=== PATIENT | female | born 2000 | race Caucasian/White ===

== ENCOUNTER 2021-07-14 15:21 | Emergency (ER) | payer OTHER, MEDICAID, SELFPAY ==
[2021-07-14 15:34] VITALS: PULSE 88; RESP 22; TEMP 37.1; O2SAT 98
--- NOTE | 2021-07-14 18:49 | ED.DENTAL ---
HPI - Dental/Oral General Chief complaint: Dental/Oral Stated complaint: LT SIDE TOOTH INJURY/NERVE EXPOSED Time Seen by Provider: 07/14/21 18:48 Source: patient Mode of arrival: Ambulatory History of Present Illness HPI Narrative: 20-year-old woman with social anxiety disorder seen by dentist back in May with complaints of left upper 1st and 2nd molar pain. Was told she needed 1 of them removed because of exposed nerve root. She still waiting to be seen for definitive treatment. At that time she was treated with a brief course of antibiotics and that did seem to help. The last 48 hours she has noticed dramatically increased pain, low-grade fevers and overall worsening sensitivity in the area of the same tooth. She has been using 600 mg of ibuprofen 3 times a day and it is no longer effective. She describes no nausea vomiting, abdominal pain, cough, palpitations. Related Data Previous Rx's Medication Instructions Recorded amoxicillin 500 mg capsule 500 mg PO TID #21 cap 07/14/21 Review of Systems Review of Systems Narrative: Remainder of complete review of systems is otherwise unremarkable except for that included in the HPI. Patient History Medical History (Updated 07/14/21 @ 18:55 by Brenna Pulido MD) Social anxiety disorder Exam Narrative Exam Narrative: General: Alert appropriate in no acute distress HEENT: Multiple dental caries but overall fairly reasonable dental hygiene. No obvious exposed broken teeth and no obvious abscess no facial swelling. Respiratory: Able to speak in full sentences, no obvious respiratory distress Skin: No obvious rashes, warm and dry Neurologic: Grossly intact no obvious asymmetries or abnormalities Psych: appropriate insight and affect, cooperative Initial Vital Signs Initial Vital Signs: Vital Signs Temperature 98.7 F 07/14/21 15:34 Pulse Rate 88 07/14/21 15:34 Respiratory Rate 22 07/14/21 15:34 Pulse Oximetry 98 07/14/21 15:34 Course Orders Ordered: Amoxicillin (Amoxicillin 250 Mg/5 Ml Prepack) 1 bottle MISC SEEINSTR ONE Stop: 07/14/21 18:53 Vital Signs Vital signs: Vital Signs - 8 hr 07/14/21 15:34 Temperature 98.7 F Pulse Rate 88 Respiratory Rate 22 Pulse Oximetry 98 MDM - Dental/Oral MDM Narrative Medical decision making narrative: 20-year-old young woman with increasing pain left upper 1st and 2nd molar. Has upcoming dental procedures but not for a number of weeks. In the past amoxicillin has been helpful. Will give her prescription for this and instruct return if symptoms worse. She is safe for home discharge Discharge Plan Departure Patient Disposition: Home Clinical Impression: Toothache Instructions: DI for Dental Pain Activity Restrictions/Additional Instructions: Thank you for coming in today I am sorry that you are hurting. I have given you a take-home packet of amoxicillin. For the the take home pills you need to take 2 at a time 3 times a day. The prescription amoxicillin is for 500 mg and you will need 1 at a time 3 times a day Try adding a single tablet of Tylenol to every tablet of ibuprofen and see if this is any more effective for you. Please make sure your contacting your dentist tomorrow to see if there is any way they are able to move up your appointment. I wish you the best Prescriptions: New amoxicillin 500 mg capsule 500 mg PO TID Qty: 21 0RF Referrals: Parveen Navarro MD [Primary Care Provider] -
[2021-07-14 19:04] VITALS: BP 144/83; PULSE 86; RESP 16; O2SAT 100
[2021-07-14] MEDS: AMOXICILLIN 250 MG PREPACK 1 BOTTLE MISC (19:08)
[2021-07-14] MEDS: OXYCODONE/APAP 5/325 PREPACK 1 BOTTLE MISC (19:09)
--- NOTE | 2021-07-14 20:21 | PC.NURSE ---
Amoxicillin Rx called into [facility] pharmacy in [place] per pt request.
== END 2021-07-14 19:13 | disposition home or self-care (01) ==
PROVIDERS: Emergency Provider Emergency Medicine; PCP Family Medicine
DX: K08.89 Other specified disorders of teeth and supporting structures (principal)
CPT/HCPCS: 99281

== ENCOUNTER → 2021-12-26 18:28 | Outpatient (CLI) | payer OTHER, MEDICAID, SELFPAY ==
--- NOTE | 2021-12-26 18:30 | DI.RAD.S_ITS ---
PROCEDURE: XR HAND LT MIN 3V INDICATIONS: Left hand/wrist pain TECHNIQUE: 3 views of the hand(s) acquired. COMPARISON: None. FINDINGS: Bones: No fractures or dislocations. Carpal bones are normally aligned. No suspicious bony lesions. Soft tissues: No suspicious soft tissue calcifications. IMPRESSION: No acute osseous abnormalities. If clinical symptoms persist or clinical suspicion for pathology is high, a repeat examination in 7-10 days, or advanced imaging such as CT or MRI is suggested for further evaluation. Dictated by: Maria Esther Pompa M.D. on 12/27/2021 at 17:23 Approved by: Maria Esther Pompa M.D. on 12/27/2021 at 17:23
--- NOTE | 2021-12-26 18:30 | DI.RAD.S_ITS ---
PROCEDURE: XR WRIST LT MIN 3V INDICATIONS: Left hand/wrist pain TECHNIQUE: 4 views of the wrist were acquired. COMPARISON: [facility], , XR HAND LT MIN 3V, 12/26/2021, 18:17. FINDINGS: Bones: No fractures or dislocations. No suspicious bony lesions. There is ulnar negative variance. Scaphoid view: Scaphoid appears intact. Soft tissues: No suspicious soft tissue calcifications. IMPRESSION: 1. No acute osseous abnormalities. 2. Ulnar negative variance. Dictated by: Maria Esther Pompa M.D. on 12/27/2021 at 17:24 Approved by: Maria Esther Pompa M.D. on 12/27/2021 at 17:25
== END ==
PROVIDERS: PCP Family Medicine; Referring Provider Nurse Practitioner Family; Visit Provider Nurse Practitioner Family
DX: M79.642 Pain in left hand (principal); M25.532 Pain in left wrist
CPT/HCPCS: 73110; 73130

== ENCOUNTER → 2023-04-30 14:14 | Outpatient (CLI) | payer OTHER, MEDICAID, SELFPAY ==
[2023-04-30 15:25] LABS: Influenza A - CEPHEID Flu A NEGATIVE (NEGATIVE); Influenza B - CEPHEID Flu B NEGATIVE (NEGATIVE); Respiratory Syncytial Virus Negative (Negative)
[2023-04-30 15:29] LABS: COVID-19 CEPHEID 4-PLEX PCR POSITIVE (Negative)
== END ==
PROVIDERS: PCP Family Medicine; Visit Provider Nurse Practitioner Family
DX: R30.0 Dysuria (principal); R50.9 Fever, unspecified; J02.9 Acute pharyngitis, unspecified
CPT/HCPCS: 0241U; 81002; 87070; 87086; C9803

== ENCOUNTER 2023-05-02 17:02 | Emergency (ER) | payer OTHER, MEDICAID, SELFPAY ==
[2023-05-02 17:15] VITALS: BP 184/112; PULSE 84; RESP 16; TEMP 36.9; O2SAT 98; BMI 56.5
--- NOTE | 2023-05-02 18:49 | ED.URI ---
HPI - URI/Sore Throat <IDRIS Sun - Last Filed: 05/02/23 19:00> General Chief Complaint: Upper Respiratory Symptoms Stated Complaint: covid Time Seen by Provider: 05/02/23 18:35 Source: patient Mode of arrival: Ambulatory History of Present Illness HPI Narrative: 22-year-old female, morbidly obese, presents to the emergency department with cough, congestion, sinus drainage, fatigue and body aches secondary to COVID-19. Patient tested positive for COVID 2 days ago at the walk-in clinic. Patient denies any history of asthma, bronchitis, pneumonia or tobacco usage. Related Data Home Medications Medication Instructions Recorded Confirmed hydroxyzine HCl 25 mg tablet 25 mg PO BID PRN 04/30/23 04/30/23 methylphenidate HCl 18 mg 18 mg PO DAILY 04/30/23 04/30/23 tablet,extended release 24 hr (Concerta) omeprazole 20 mg capsule,delayed 20 mg PO DAILY 04/30/23 04/30/23 release ondansetron 8 mg disintegrating 8 mg PO 3XD 04/30/23 04/30/23 tablet sertraline 50 mg tablet mg PO 04/30/23 04/30/23 tramadol 50 mg tablet 50 mg PO 4XD PRN 04/30/23 04/30/23 Previous Rx's Medication Instructions Recorded ondansetron 4 mg disintegrating 4 mg PO Q8H PRN nausea and 05/02/23 tablet vomiting #10 tabs Allergies Allergy/AdvReac Type Severity Reaction Status Date / Time No Known Drug Allergies Allergy Verified 04/30/23 14:02 Review of Systems <IDRIS Sun - Last Filed: 05/02/23 19:00> Review of Systems Narrative: Narrative: See HPI. GENERAL: Denies chills, fever, sweats. Endorses fatigue and body aches. HEENT: Denies sinus pain, edifficulty swallowing, dizziness. Endorses ear fullness and sore throat. RESPIRATORY: Denies dyspnea, wheezing, sputum. Endorses cough and congestion. CARDIOVASCULAR: Denies chest pain, palpitations, edema. GASTROINTESTINAL: Denies abdominal pain, diarrhea, constipation. Endorses occasional nausea and vomiting. : Denies dysuria, frequency, incontinence, hematuria, urinary retention, flank pain. MSK: Denies weakness, joint pain, or bony pain. SKIN: Denies rash, skin lesions, or pruritis. NEUROLOGIC: Denies weakness, dizziness, headache, numbness, confusion. PSYCHIATRIC: No concerning psychosocial issues. Patient History <IDRIS Sun - Last Filed: 05/02/23 19:00> Medical History Social anxiety disorder Social History Smoking Status: Never smoker Smoking Status: Never smoker Exam <IDRIS Sun - Last Filed: 05/02/23 19:00> Narrative Exam Narrative: Exam Narrative: GENERAL: This is a well-nourished, well-developed patient, in no acute distress. HEAD: Atraumatic. Normocephalic. EYES: Pupils equal round and reactive. Extraocular motions intact. No scleral icterus, injection or drainage. ENT: Nose without bleeding, purulent drainage. Throat without erythema, tonsillar hypertrophy, positive postnasal exudate. Uvula midline. Airway patent. TMs and canals clear, with bilateral effusion. No sinus tenderness. NECK: Trachea midline. No JVD or lymphadenopathy. Nontender. CARDIOVASCULAR: Regular rate and rhythm without murmurs, peripheral pulses intact, cap refill <2 sec. RESPIRATORY: Breath sounds equal and clear bilaterally. No wheezes, rales, or rhonchi. No witnessed cough. No increased respiratory effort. No accessory muscle use. MSK: Moves all extremities. Normal range of motion, no clubbing or edema. Neurovascularly intact. NEURO: A&O x 3. SKIN: Warm, dry, no rashes or lesions noted. Initial Vital Signs Initial Vital Signs: Vital Signs Temperature 98.5 F 05/02/23 17:15 Pulse Rate 84 05/02/23 17:15 Respiratory Rate 16 05/02/23 17:15 Blood Pressure 184/112 H 05/02/23 17:15 Pulse Oximetry 98 05/02/23 17:15 Oxygen Delivery Method Room Air 05/02/23 17:15 Reviewed <Lazara Salazar DO - Last Filed: 05/02/23 22:55> Initial Vital Signs Initial Vital Signs: Vital Signs Temperature 98.5 F 05/02/23 17:15 Pulse Rate 84 05/02/23 17:15 Respiratory Rate 16 05/02/23 17:15 Blood Pressure 184/112 H 05/02/23 17:15 Pulse Oximetry 98 05/02/23 17:15 Oxygen Delivery Method Room Air 05/02/23 17:15 Course <IDRIS Sun - Last Filed: 05/02/23 19:00> Orders Ordered: Discontinued Medications Ondansetron HCl (Ondansetron 4 Mg Odt Prepack) 1 bottle MISC SEEINSTR ONE Stop: 05/02/23 18:46 Last Admin: 05/02/23 18:55 Dose: 1 bottle Documented By: KLS Vital Signs Vital signs: Vital Signs - 8 hr 05/02/23 17:15 05/02/23 18:58 Temperature 98.5 F 98.6 F Pulse Rate 84 90 Respiratory Rate 16 16 Blood Pressure 184/112 H 121/68 Pulse Oximetry 98 99 Oxygen Delivery Method Room Air Room Air <Lazara Salazar DO - Last Filed: 05/02/23 22:55> Orders Ordered: Discontinued Medications Ondansetron HCl (Ondansetron 4 Mg Odt Prepack) 1 bottle MISC SEEINSTR ONE Stop: 05/02/23 18:46 Last Admin: 05/02/23 18:55 Dose: 1 bottle Documented By: KLS Vital Signs Vital signs: Vital Signs - 8 hr 05/02/23 17:15 05/02/23 18:58 Temperature 98.5 F 98.6 F Pulse Rate 84 90 Respiratory Rate 16 16 Blood Pressure 184/112 H 121/68 Pulse Oximetry 98 99 Oxygen Delivery Method Room Air Room Air MDM - URI/Sore Throat <IDRIS Sun - Last Filed: 05/02/23 19:00> Differential Diagnosis Differential diagnosis: Likely upper respiratory infection, otitis media, viral infection and pharyngitis MDM Narrative Medical decision making narrative: 22-year-old female who presented to the emergency department with COVID-19 like symptoms. Assessment was consistent COVID-19. I attribute the elevated blood pressure to patient's size and illness. Will provide ondansetron for nausea so that she can maintain hydration. Recommended [id number] medications as needed for discomfort. I suspect much of patient's symptoms are from sinus drainage. Recommended supportive care that included rest, increased oral hydration, gargling with warm salt water in the morning, daily Claritin or Zyrtec and Flonase nasal spray. Discussed plan of care and return precautions with patient and father, who verbalized understanding and was agreeable with course of action. Discharge Plan Departure Patient Disposition: Home Clinical Impression: COVID-19 Instructions: DI for COVID-19 (Suspected or Confirmed ) Activity Restrictions/Additional Instructions: *You have been diagnosed with COVID-19. My assessment was encouraging and consistent with COVID-19. Please take [id number] medications as needed for comfort. We will give you a prepack anti nausea medication and have sent a short course to your pharmacy. This medication is meant to allow you to maintain adequate hydration and not necessarily the ability to eat a full meal. You are also exhibiting symptoms of allergic rhinitis. Recommended supportive care that included rest, increased oral hydration, gargling with warm salt water in the morning, daily Claritin or Zyrtec and Flonase nasal spray. For any worsening symptoms that include intolerable pain, shortness of breath, chest pain, etc. please return to the emergency department. Otherwise, please follow-up with your family doctor as needed. *What to do: *Please continue to take your regular medications as directed. [x] New medication prescriptions sent to your pharmacy: [[facility]] [ ] New medication written as a paper prescription [ ] No new medications given *Please follow up with your primary care provider in 2-3 days, call for an appointment. Let them know you were seen in the Emergency Department and that we ask that you be seen in follow up. We will electronically transmit a record of today's note if your PCP is in our system *If you do not have a primary care provider please contact the [facility] Resource line at [phone]. They will ask some questions about your medical history and help get you set up with a doctor in the community. ? Return to ER if you should have any new, worsening or concerning symptoms, such as worsening pain, severe headache, confusion, chest pain, difficulty breathing, fever greater than 101 F, shaking chills, persistent vomiting to the point that you cannot drink fluids, or other new or worsening symptoms. Prescriptions: New ondansetron 4 mg tablet,disintegrating 4 mg PO Q8H PRN (Reason: nausea and vomiting) Qty: 10 0RF No Action tramadol 50 mg tablet 50 mg PO 4XD PRN ondansetron 8 mg tablet,disintegrating 8 mg PO 3XD omeprazole 20 mg capsule,delayed release(DR/EC) 20 mg PO DAILY sertraline 50 mg tablet PO hydroxyzine HCl 25 mg tablet 25 mg PO BID PRN methylphenidate HCl [Concerta] 18 mg tablet extended release 24hr 18 mg PO DAILY Referrals: Parveen Navarro MD [Primary Care Provider] - Stand Alone Forms: Patient Portal/API ED Sign-out <Lazara Salazar DO - Last Filed: 05/02/23 22:55> Cosign ED Attending Cosignature Attestation: I was immediately available in the department for consultation. Documentation has been reviewed.
[2023-05-02] MEDS: ONDANSETRON 4 MG ODT PREPACK 1 BOTTLE MISC (18:55)
[2023-05-02 18:58] VITALS: BP 121/68; PULSE 90; RESP 16; TEMP 37; O2SAT 99
== END 2023-05-02 19:14 | disposition home or self-care (01) ==
PROVIDERS: Emergency Provider Registered Nurse; PCP Family Medicine
DX: U07.1 COVID-19 (principal)
CPT/HCPCS: 99281; 99283